=== PATIENT | female | born 1965 | race Caucasian/White ===

== ENCOUNTER 2024-11-29 11:26 | Day surgery (SDC) | payer BC ==
[~2024-11-29 11:26] MED LIST: LACTATED RINGERS 1,000 ML IV SCH
[2024-11-29 12:49] VITALS: TEMP 98.3
[2024-11-29] MEDS: IV FLUID CONTINUATION 1,000 ML IV ONE ×2 (12:49→13:09)
[2024-11-29] MEDS ORDERED: PROPOFOL 10 MG/ML 20 ML VIAL IV ONE (13:11)
--- NOTE | 2024-11-29 13:27 | P.PCN ---
Date of Procedure: 11/29/24 Procedure(s) Performed: BRIEF HISTORY: Patient is a 58-year-old, pleasant, white female scheduled for an upper endoscopy as a part evaluation of lungs and history of GERD and Guy's esophagus. She is on omeprazole 20 mg daily and doing well.. PROCEDURE PERFORMED: Esophagogastroduodenoscopy with biopsy. PREOPERATIVE DIAGNOSIS: Follow-up GERD and Guy's esophagus. IV sedation per anesthesia. PROCEDURE: After informed consent was obtained, the patient was brought into the endoscopy unit. IV sedation was administered by Anesthesia under continuous monitoring. Initially the Olympus GIF-140 video endoscope was inserted into the mouth. Esophagus intubated without any difficulty. It was gradually advanced into the stomach and duodenum and carefully examined. The bulb and the second part of the duodenum appeared normal. The scope at this time was withdrawn to the stomach, adequately insufflated with air, and upon careful examination, mucosa of the antrum, body, cardia and the fundus appeared normal. The scope was then withdrawn into the esophagus. Small hiatal hernia noted. The GE junction was located at 36 cm from the incisors. There was a 5 mm island of Guy's appearing mucosa just proximal to the GE junction that was biopsied. The esophagus appeared normal. There were no erosions or ulcerations seen and the patient tolerated the procedure well. IMPRESSION: 1. Small hiatal hernia. 2. Short segment Guy's esophagus status post biopsy. RECOMMENDATIONS: The findings of this examination were discussed with the patient as well as her family. She was advised to follow-up with the biopsy results. Continue with omeprazole 20 mg daily and follow antireflux measures. If the biopsy confirms the presence of Guy's esophagus, she can have repeat upper endoscopy in 3 years..
[2024-11-29 13:57] VITALS: BP 136/76; PULSE 69; RESP 18
== END 2024-11-29 14:09 | disposition home or self-care (01) ==
LOC: ORWHC2ENDO 11:26
PROVIDERS: ATTEND Internal Medicine Gastroenterology
DX: K22.70 Barrett's esophagus without dysplasia (principal); K21.9 Gastro-esophageal reflux disease without esophagitis; K44.9 Diaphragmatic hernia without obstruction or gangrene; J44.9 Chronic obstructive pulmonary disease, unspecified; G25.81 Restless legs syndrome; Z79.899 Other long term (current) drug therapy
CPT/HCPCS: 88305; 43239; J2704